=== PATIENT | male | born 1940 | race Caucasian/White ===

== ENCOUNTER 2018-08-20 13:16 | Inpatient (IN) | payer OTHER, MEDICARE ==
--- NOTE | 2018-08-20 13:47 | PDOC ---
History of Present Illness - General Chief Complaint: Revisit, Lab Variance Stated Complaint: ABNORMAL LABS Time Seen by Provider: 08/20/18 13:47 History Source: [facility] Records Exam Limitations: Clinical Condition, Physical Impairment - History of Present Illness Initial Comments: Pt is an 78 yo M, with PMH of [place] with CABG x3, CVA (with deficits, chronic vent/ trach, G-tube, cortes), Non-hodgkins lymphoma, HTN, and VZV (on acyclovir), who is presenting from [facility] for blood transfusion with hemoglobin of 7. Pt is non- verbal and cannot provide ROS. Nursing records show pt has had hemoglobin ~7- 7.1 since at least 08/16/2018; fecal occult stool sample done today showed 3+ blood, so was sent for transfusion. Social: No cigarette, alcohol, or drug use. No recent travel or sick contacts. Surgical: no relevant history. Family: no relevant history. 08/20/18 16:50 Past History - Travel Traveled outside of the country in the last 30 days: No Close contact w/someone who was outside of country & ill: No - Past Medical History Allergies/Adverse Reactions: Allergies Allergy/AdvReac Type Severity Reaction Status Date / Time No Known Allergies Allergy Verified 08/20/18 13:48 Review of Systems - Review of Systems Able to Perform ROS?: No (trach, non-verbal) Is the patient limited Zambian proficient: No *Physical Exam - Physical Exam Comments: BP stable, HR 120, rectal temp 100.9. Pt in NAD, cachectic body habitus. Pt non-verbal, but shakes his head to questioning. 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 Withdraws extremities from stimuli. No midline spinal tenderness, step-offs, or crepitus. Head normocephalic, atraumatic. Eyes PERRLA, EOMI. Oropharynx without erythema or exudates, no LAD b/l. Dry oral mucosa. No nasal congestion, hearing intact. Clear heart sounds, S1/S2, no JVD, b/l pedal edema, or heart murmur. Bounding pulses. Clear lung sounds, no respiratory distress, wheezes, crackles, or accessory muscle use. No abdominal or CVA tenderness to palpation, no rebound, no guarding. Abdomen soft, non-distended, and with normoactive bowel sounds. Large unstageable pressure ulcer on pts back. Active shingles lesions on L axilla. Sebaceous lesions on forehead and extremities. Cortes catheter in place, draining cloudy yellow urine. Rectal exam showed no zane blood in stool. 08/20/18 15:09 ED Treatment Course - LABORATORY CBC & Chemistry Diagram: 08/20/18 14:03 08/20/18 14:03 Medical Decision Making - Medical Decision Making Pt was seen at bedside, also will be seen by attending Dr. Ballesteros. Pt presenting from [facility] for blood transfusion with hemoglobin of 7. Pt is non-verbal and cannot provide ROS. Nursing records show pt has had hemoglobin ~7-7.1 since at least 08/16/2018; fecal occult stool sample done today showed 3+ blood, so was sent for transfusion. Considering GI bleed (likely lower considering no vomiting and +fecal occult at [facility]) vs sepsis (UTI, pneumonia) Ordered work-up including sepsis orders, Fe studies, chest x-ray, blood and urine cultures. Provided 1 g IV Ofirmev and 40 mg IV protonix for improvement of fever. Will continue to reassess pt and monitor for symptomatic improvement. ECG: Sinus tachycardia with PVCs (HR 119, NC 130, QRS 80, QTc 419), intervals WNL. No TWIs or significant ST segment changes. No prior ECG for comparison. 08/20/18 16:20 CBC: 13.1, H/H 7.7/24 CMP: BUN 37, Cr 0.5 Trop .06 Stool + for occult blood Lactic 2.1 Providing pt 500 mL IV NS Spoke with next of kin and proxy by telephone, consented for blood transfusion - - ordered 1 unit pRBCs. 08/20/18 16:[address] Shirley/G[facility] team x2 (admits for [facility]). 08/20/18 16:55 UA negative for infection. 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 Pending bed upstairs for admission to med/surg. 08/20/18 17:04 *DC/Admit/Observation/Transfer Diagnosis at time of Disposition: Anemia Qualifiers: Anemia type: unspecified type Qualified Code(s): D64.9 - Anemia, unspecified - Discharge Dispostion Condition at time of disposition: Stable Decision to Admit order: Yes - Referrals Referrals: Garcia Ricardo MD [Primary Care Provider] - - Patient Instructions - Post Discharge Activity
[2018-08-20] MEDS ORDERED: ACETAMINOPHEN 1000 MG/100 ML VIAL (NON FORMULARY) IVPB ONE (13:48)
[2018-08-20] MEDS ORDERED: PANTOPRAZOLE SODIUM 40 MG VIAL IVPUSH ONE (14:46)
[2018-08-20 15:08] LABS: BASO % 0.2 % (0-2.0); HEMATOCRIT 24.4 % (35.4-49); HEMOGLOBIN 7.7 GM/dL (11.7-16.9); LYMPH % 3.1 % (8-40); MCH 34.5 pg (25.7-33.7); MCHC 31.7 g/dl (32.0-35.9); MEAN CELL VOLUME 108.6 fl (80-96); MEAN PLT VOLUME 9.5 fl (7.5-11.1); MONO % 7.1 % (3.8-10.2); NEUT % 89.6 % (42.8-82.8); PLATELET COUNT 378 K/MM3 (134-434); RBC 2.25 M/mm3 (4.00-5.60); RDW 23.9 % (11.9-15.9); RETICULOCYTES 3.44 % (0.5-1.5); WHITE BLOOD COUNT 13.1 K/mm3 (4.0-10.0)
[2018-08-20] MEDS ORDERED: ACETAMINOPHEN INJECTION 100 ML IVPB ONE (15:08)
[2018-08-20] MEDS ORDERED: PANTOPRAZOLE SODIUM 40 MG/100 ML BAG IVPB ONE (15:08)
[2018-08-20 15:30] LABS: INR 1.49 (0.83-1.09); PROTHROMBIN TIME (PATIENT) 17.6 SEC (9.7-13.0)
[2018-08-20 15:32] LABS: ACTIVATED PTT 39.8 SECONDS (25.2-36.5)
--- NOTE | 2018-08-20 15:38 | PDOC ---
Documentation entered by Amber Torres SCRIBE, acting as scribe for Camille Ballesteros MD. Camille Ballesteros MD: This documentation has been prepared by the Melissa rivera Nirvannie, SCRIBE, under my direction and personally reviewed by me in its entirety. I confirm that the documentation accurately reflects all work, treatment, procedures, and medical decision making performed by me. 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 As per facility, patient was sent to the ER for blood transfusion and admission. History is limited secondary to patient's clinical condition. Allergies: None Past Medical History: as documented in EMR/HPI Social history: DNR. Lives at [facility]. No tobacco, ETOH or drug use. Surgical history: CABG Meds: as documented in EMR PMD: Dr. Ricardo - Physicial Exam PE: 08/20/18 14:34 Agree with the resident's HPI and PE as documented in the electronic medical record. NAD, Arousable, nonverbal EOMI, PERRL, pale conjunctiva, anicteric; neck supple. +Trach in place,. lungs clear, poor inspiratory effort, +Tachycardic, + Midline sternotomy scar, +cachetic, abdomen soft nontender. Back nontender. HERRERA x4, no focal neuro deficits, +nonverbal at baseline. No peripheral edema. pale color for ethnicity, +Left axila shingles rash, dry skin 08/20/18 15:37 08/20/18 15:37 - Medical Decision Making 08/20/18 15:35 See HPI for details. Prior notes reviewed, including admissions, discharges and consultations. Vital signs reviewed, fever, normotensive. on trach/vent chronically laboratory results and imaging reviewed, basic labs and lytes wnl, notable for Mild leukocytosis at 13 K associated with anemia hemoglobin 7.7, hct 24.4 - symptomatic, will treat accordingly UA_with some rbcs, wbcs - f/u culture, as probable colonizer CXR_left infiltrate in retrocardiac space vs atelectasis, sternotomy wires in place Cardiac panel_elevated trop 0.06, no acute ekg changes EKG sinus tachycardia, no interval abnormalities, narrow QRS, ST and T wave segments and morphology normal. Nonspecific T wave abnormalities ED course -interventions: IV abx for sepsis, vanc/zosyn. antipyretics for fever UTI with chronic indwelling cath vs pna on cxr and chronic vent - mrsa and pseudomonas risk Aspirin held off due to anemia and positive guaiac. Troponin is noted to be elevated mildly to 0.06 likely demand ischemia. EKG is transfusion 1 unit prbc protonix for occult GIB as etiology for anemia. repeat VS normalizing, defervesced admit to Dr Shirley service for anemia, occult GIB, pna and demand ischemia 08/20/18 15:37 08/20/18 15:38 08/20/18 15:39 08/20/18 15:51 08/20/18 17:16 08/20/18 17:17 Heart Score/ECG Review #1 ECG reviewed & interpreted by me at: 13:15 General ECG Interpretation: Sinus Rhythm, Normal Intervals Compared to previous ECG there are: Changes noted 08/20/18 15:43 Sinus tachycardia at 119 bpm, nonspecific T-wave abnormalities
[2018-08-20 15:44] LABS: CALCIUM 8.9 mg/dL (8.5-10.1); CREATININE 0.5 mg/dL (0.55-1.3); POTASSIUM 4.8 mmol/L (3.5-5.1)
[2018-08-20 15:45] LABS: ALBUMIN 2.2 g/dl (3.4-5.0); BILIRUBIN,TOTAL 0.3 mg/dL (0.2-1); TOT PROT 6.5 g/dl (6.4-8.2)
[2018-08-20] MEDS ORDERED: VANCOMYCIN 750 MG in DEXTROSE 5%-WATER - 250 ML IVPB ONE (15:47)
[2018-08-20] MEDS ORDERED: SODIUM CHLORIDE 500 ML IV STA (15:47)
[2018-08-20] MEDS ORDERED: PIPERACILLIN/TAZOB 3.375 GM 3.375 GM in DEXTROSE 5%-WATER - 50 ML IVPB ONE (15:47)
[2018-08-20] MEDS ORDERED: AZITHROMYCIN IVPB 500 MG in DEXTROSE 5%-WATER - 250 ML IVPB ONE (15:48)
[2018-08-20] MEDS ORDERED: AZITHROMYCIN IVPB 500 MG/250 ML BAG IVPB ONE (15:52)
[2018-08-20] MEDS ORDERED: PIPERACILLIN/TAZOB 3.375 GM 3.375 GM/50 ML BAG IVPB ONE (15:52)
[2018-08-20 16:17] LABS: EPI CELLS 2.5 /HPF (0-5/HPF); HYALINE CASTS 26 /lpf (0-8); URINE APPEARANCE CLOUDY; URINE BACTERIA 2.9 /hpf (NEGATIVE); URINE BILIRUBIN NEGATIVE (NEGATIVE); URINE COLOR YELLOW; URINE GLUCOSE (UA) NEGATIVE (NEGATIVE); URINE KETONE NEGATIVE (NEGATIVE); URINE LEUK ESTERASE NEGATIVE (NEGATIVE); URINE NITRITE NEGATIVE (NEGATIVE); URINE PROTEIN TRACE (NEGATIVE); URINE RBC 23 /hpf (0-4); URINE UROBILINOGEN 0.2 mg/dL (0.2-1.0); URINE WBC 2 /hpf (0-5)
[2018-08-20] MEDS ORDERED: ALBUTEROL SO4 0.083% IH SOL 2.5 MG/3 ML VIAL.NEB. NEB PRN (17:19)
[2018-08-20] MEDS ORDERED: SODIUM CHLORIDE 1,000 ML IV SCH (17:30)
[2018-08-20] MEDS ORDERED: ACETAMINOPHEN 325 MG TABLET (FP) PO PRN (17:31)
--- NOTE | 2018-08-20 17:43 | HP ---
Admitting History and Physical - Primary Care Physician PCP: Sridevi Hong - Admission Chief Complaint: Anemia History of Present Illness: Patient is an 78 y/o male with past medical history of Chronic Respiratory Failure (s/p trach), HLD, [place], anxiety, chronic constipation, Afib, GERD, COPD, HTN, sacral ulcer, chronic wound to L elbow. Patient presented to ER from [facility] for Hg of 7 and positive Stool OB. Patient is non-verbal and ventilator dependent. History Source: Transfer Record Limitations to Obtaining History: Clinical Condition - Past Medical History Cardiovascular: Yes: AFIB, CAD, HTN, [place] Pulmonary: Yes: COPD, Other (Chronic Respiratory Failure) Gastrointestinal: Yes: GERD Heme/Onc: Yes: Anemia - Past Surgical History Past Surgical History: Yes: CABG - Smoking History Smoking history: Unknown if ever smoked - Alcohol/Substance Use Hx Alcohol Use: No - Social History Usual Living Arrangement: Yes: Jail ADL: Support Services History of Recent Travel: No Home Medications - Allergies Allergies/Adverse Reactions: Allergies Allergy/AdvReac Type Severity Reaction Status Date / Time No Known Allergies Allergy Verified 08/20/18 13:48 - Home Medications Home Medications: Ambulatory Orders Acetaminophen 325 mg GT Q8H PRN 08/20/18 Acyclovir [Zovirax] 200 mg GT Q12H 08/20/18 Albuterol 2.5/Ipratropium 0.5 [Duoneb -] 1 neb IH QID 08/20/18 Aspirin [ASA -] 81 mg GT DAILY 08/20/18 Atorvastatin Ca [Lipitor] 80 mg GT HS 08/20/18 Clonazepam 0.5 mg GT DAILY 08/20/18 Docusate Liquid [Colace Liquid -] 15 ml GT TID 08/20/18 Famotidine [Pepcid] 40 mg GT BID 08/20/18 Metoprolol Tartrate [Lopressor -] 25 mg PO Q12H 08/20/18 Polyethylene Glycol 3350 [Miralax (For Daily Use) -] 17 gm GT DAILY 08/20/18 Review of Systems Unable to obtain ROS, reason: non-verbal Physical Examination Vital Signs: Vital Signs Temperature 99.6 F 08/20/18 17:18 Pulse Rate 103 H 08/20/18 17:18 Respiratory Rate 34 H 08/20/18 17:18 Blood Pressure 122/72 08/20/18 17:18 O2 Sat by Pulse Oximetry (%) 100 08/20/18 17:18 Constitutional: Yes: Cachectic, Mild Distress Eyes: Yes: Conjunctiva Clear HENT: Yes: Atraumatic Neck: Yes: Other (trach) Cardiovascular: Yes: Tachycardia Respiratory: Yes: Mechanically Ventilated, Rhonchi Gastrointestinal: Yes: Normal Bowel Sounds, Soft, Other (G tube) Renal/: Yes: Hsieh Present Musculoskeletal: Yes: Muscle Weakness Extremities: Yes: WNL Edema: No Neurological: Yes: Alert, Pre-Existing Deficit Psychiatric: Yes: Alert Labs: CBC, BMP 08/20/18 14:03 08/20/18 14:03 Imaging - Results Chest X-ray: Report Reviewed Problem List - Problems (1) HTN (hypertension) Assessment/Plan: -Metoprolol Code(s): I10 - ESSENTIAL (PRIMARY) HYPERTENSION (2) HLD (hyperlipidemia) Assessment/Plan: -Atorvastatin Code(s): E78.5 - HYPERLIPIDEMIA, UNSPECIFIED (3) GERD (gastroesophageal reflux disease) Assessment/Plan: -Famotidine Code(s): K21.9 - GASTRO-ESOPHAGEAL REFLUX DISEASE WITHOUT ESOPHAGITIS (4) Chronic respiratory failure Assessment/Plan: -pulmonary consult -[facility] ventilator A/C mode -bronchodilators -keep SpO2 >90% Code(s): J96.10 - CHRONIC RESPIRATORY FAILURE, UNSP W HYPOXIA OR HYPERCAPNIA (5) A-fib Assessment/Plan: -Metoprolol Code(s): I48.91 - UNSPECIFIED ATRIAL FIBRILLATION (6) Sacral decubitus ulcer Assessment/Plan: -Silvadene daily -daily dressing changes Code(s): L89.159 - PRESSURE ULCER OF SACRAL REGION, UNSPECIFIED STAGE (7) Anemia Assessment/Plan: -Hg 7.7--pending 1U PRBC transfusion -GI consult -Stool OB positive -monitor Hg daily and transfuse for Hg <7.0 to avoid fluid overload Code(s): D64.9 - ANEMIA, UNSPECIFIED Qualifiers: Anemia type: unspecified type Qualified Code(s): D64.9 - Anemia, unspecified (8) Sepsis Assessment/Plan: -ID consult -received Vancomycin and ZOsyn in ER -WBC 13.1 -tylenol prn for temp >100F -BC and UC pending -LA 2.1 -CXR shows left retrocardiac opacity attributed to the pleural effusion, compressive atelectasis pneumonia cannot be entirely excluded Code(s): A41.9 - SEPSIS, UNSPECIFIED ORGANISM
[2018-08-20] MEDS: METOPROLOL TARTRATE 25 MG TABLET (FP) GT SCH (23:42)
[2018-08-20] MEDS: ATORVASTATIN CA 80 MG TABLET (FP) GT SCH (23:42)
[2018-08-20] MEDS: clonazePAM 0.5 MG TABLET GT PRN (23:42)
[2018-08-20] MEDS: FAMOTIDINE 20 MG/50 ML IVPB 20 MG/50 ML MG IVPB SCH (23:43)
[2018-08-21] MEDS: ACYCLOVIR 200 MG/5 ML LIQUID GT SCH ×3 (00:55→21:44)
[2018-08-21] MEDS: HYDROCORTISONE 2.5% TOPICAL CREAM 30 GM TUBE TP SCH ×3 (00:55→22:56)
[2018-08-21 07:31] LABS: BASO % 0.3 % (0-2.0); EOS % 3.1 % (0-4.5); HEMATOCRIT 23.3 % (35.4-49); HEMOGLOBIN 7.7 GM/dL (11.7-16.9); LYMPH % 3.6 % (8-40); MCH 33.6 pg (25.7-33.7); MCHC 32.9 g/dl (32.0-35.9); MEAN CELL VOLUME 102.1 fl (80-96); MEAN PLT VOLUME 8.7 fl (7.5-11.1); MONO % 4.2 % (3.8-10.2); NEUT % 88.8 % (42.8-82.8); PLATELET COUNT 261 K/MM3 (134-434); RBC 2.28 M/mm3 (4.00-5.60); RDW 25.5 % (11.9-15.9); WHITE BLOOD COUNT 9.8 K/mm3 (4.0-10.0)
[2018-08-21 08:11] LABS: ALBUMIN 1.9 g/dl (3.4-5.0); BILIRUBIN,TOTAL 0.9 mg/dL (0.2-1); CALCIUM 9.1 mg/dL (8.5-10.1); CREATININE 0.3 mg/dL (0.55-1.3); MAGNESIUM 2.5 mg/dL (1.8-2.4); PHOSPHOROUS 3.3 mg/dL (2.5-4.9); POTASSIUM 3.8 mmol/L (3.5-5.1); TOT PROT 5.6 g/dl (6.4-8.2)
[2018-08-21 08:29] LABS: INR 1.36 (0.83-1.09); PROTHROMBIN TIME (PATIENT) 16.1 SEC (9.7-13.0)
[2018-08-21 08:32] LABS: ACTIVATED PTT 38.1 SECONDS (25.2-36.5)
--- NOTE | 2018-08-21 09:24 | PN ---
Progress Note, Physician History of Present Illness: s/p cabg x 3 on 07/09/18 s/p trach 07/12/18 vent.stroke 07/18/18 Peg placement on hx. of Nonhodgskin lymphoma ,htn,hld.s noted with hgb of 7 - Current Medication List Current Medications: Active Medications Acetaminophen (Tylenol -) 650 mg PO Q8H PRN PRN Reason: FEVER Acyclovir (Zovirax Oral Suspension -) 200 mg GT BID [facility] Last Admin: 08/21/18 00:55 Dose: 200 mg Albuterol Sulfate (Ventolin 0.083% Nebulizer Soln -) 1 amp NEB Q6H PRN PRN Reason: SHORT OF BREATH/WHEEZING Albuterol/Ipratropium (Duoneb -) 1 amp NEB Q6H PRN PRN Reason: SHORTNESS OF BREATH Aspirin (Asa -) 81 mg GT DAILY [facility] Atorvastatin Calcium (Lipitor -) 80 mg GT HS [facility] Last Admin: 08/20/18 23:42 Dose: 80 mg Clonazepam (Klonopin -) 0.5 mg GT Q8H PRN PRN Reason: ANXIETY Stop: 08/27/18 17:33 Last Admin: 08/20/18 23:42 Dose: 0.5 mg Docusate Sodium (Colace Liquid -) 150 mg GT DAILY [facility] Hydrocortisone (Anusol 2.5% Hc Cream -) 1 applic TP BID [facility] Last Admin: 08/21/18 00:55 Dose: 1 applic Sodium Chloride (Normal Saline -) 1,000 mls @ 50 mls/hr IV ASDIR [facility] Stop: 08/21/18 17:21 Last Admin: 08/20/18 20:45 Dose: 50 mls/hr Famotidine/Sodium Chloride (Pepcid 20 Mg Premixed Ivpb -) 20 mg in 50 mls @ 100 mls/hr IVPB BID [facility] Last Admin: 08/20/18 23:43 Dose: 100 mls/hr Metoprolol Tartrate (Lopressor -) 12.5 mg GT BID [facility] Last Admin: 08/20/18 23:42 Dose: 12.5 mg Pneumococcal 13-Valent Conj Vacc (Prevnar 13 Syringe -) 0.5 ml IM .ONCE ONE Stop: 08/21/18 10:01 Polyethylene Glycol (Miralax (For Daily Use) -) 17 gm GT DAILY MAGDALENE Silver Sulfadiazine (Silvadene -) 1 applic TP DAILY MAGDALENE - Objective Vital Signs: Vital Signs Temperature 98.2 F 08/21/18 06:00 Pulse Rate 94 H 08/21/18 06:38 Respiratory Rate 27 H 08/21/18 06:37 Blood Pressure 91/46 L 08/21/18 06:00 O2 Sat by Pulse Oximetry (%) 100 08/21/18 06:38 Labs: CBC, BMP 08/21/18 06:49 08/21/18 06:49 INR, PTT INR 1.36 (0.83-1.09) H 08/21/18 06:49 Problem List - Problems (1) Anemia Assessment/Plan: -Hg 7.7-transfuse 2U PRBC -GI consult -Stool OB positive -monitor Hg daily and transfuse for Hg <7.0 to avoid fluid overload -Hem consult -PPI -Follow labs -DC ASA Code(s): D64.9 - ANEMIA, UNSPECIFIED Qualifiers: Anemia type: unspecified type Qualified Code(s): D64.9 - Anemia, unspecified (2) Sepsis Assessment/Plan: -ID consult -received Vancomycin and ZOsyn in ER -WBC 13.1 -tylenol prn for temp >100F -BC and UC pending -LA 2.1 -CXR shows left retrocardiac opacity maybe compressive atelectasis -r/o pneumonia Code(s): A41.9 - SEPSIS, UNSPECIFIED ORGANISM (3) Lymphoma Assessment/Plan: -Oncology consult Code(s): C85.90 - NON-HODGKIN LYMPHOMA, UNSPECIFIED, UNSPECIFIED SITE (4) A-fib Assessment/Plan: hold asa Code(s): I48.91 - UNSPECIFIED ATRIAL FIBRILLATION (5) Chronic respiratory failure Assessment/Plan: -pulmonary consult -[facility] ventilator A/C mode -bronchodilators -keep SpO2 >90% Code(s): J96.10 - CHRONIC RESPIRATORY FAILURE, UNSP W HYPOXIA OR HYPERCAPNIA (6) HTN (hypertension) Assessment/Plan: -Metoprolol Code(s): I10 - ESSENTIAL (PRIMARY) HYPERTENSION (7) Sacral decubitus ulcer Assessment/Plan: -Silvadene daily -daily dressing changes Code(s): L89.159 - PRESSURE ULCER OF SACRAL REGION, UNSPECIFIED STAGE
--- NOTE | 2018-08-21 09:40 | PN ---
Progress Note (short form) - Note Progress Note: ID CONSULT DICTATED R/O HCAP LLL PNEUMONIA/ SEPSIS SECONDARY TO PNEUMONIA CHRONIC RESP FAILURE ANEMIA S/P CABG AWAIT C/S EMPIRIC ZOSYN
--- NOTE | 2018-08-21 09:56 | CON.GI ---
Consult Consult Specialty:: Gastroenterology Referred by:: Dr. Hong Reason for Consultation:: Anemia, GI bleed - History of Present Illness History of Present Illness: 78yo male h/o Non hodgkins lymphoma, COPD, CAD s/p CABG, CVA s/p trach, PEG, VZV on acyclovir presents from [facility] with anemia and positive FOBT. Pt lethargic, not able to provide history though attempts to communicate on my evaluation. Per records pt found to have low Hb of 7 with positive FOBT therefore transferred to [facility]. No overt bleeding reported. Unclear if prior endoscopy. Pt receiving 1u prbc. Pt also found to have low grade fever and leucocytosis on admission, cultures pending, being treated empirically with zosyn for possible pneumonia. - History Source History Provided By: Medical Record Limitations to Obtaining History: Other (s/p tracheostomy) - Past Medical History Cardio/Vascular: Yes: AFIB, CAD, HTN, [place] Pulmonary: Yes: COPD, Other (Chronic Respiratory Failure) Gastrointestinal: Yes: GERD - Past Surgical History Past Surgical History: Yes: CABG - Alcohol/Substance Use Hx Alcohol Use: No - Smoking History Smoking history: Unknown if ever smoked - Social History ADL: Support Services History of Recent Travel: No Home Medications - Allergies Allergies/Adverse Reactions: Allergies Allergy/AdvReac Type Severity Reaction Status Date / Time No Known Allergies Allergy Verified 08/20/18 13:48 - Home Medications Home Medications: Ambulatory Orders Acetaminophen 325 mg GT Q8H PRN 08/20/18 Acyclovir [Zovirax] 200 mg GT Q12H 08/20/18 Albuterol 2.5/Ipratropium 0.5 [Duoneb -] 1 neb IH QID 08/20/18 Aspirin [ASA -] 81 mg GT DAILY 08/20/18 Atorvastatin Ca [Lipitor] 80 mg GT HS 08/20/18 Clonazepam 0.5 mg GT DAILY 08/20/18 Docusate Liquid [Colace Liquid -] 15 ml GT TID 08/20/18 Famotidine [Pepcid] 40 mg GT BID 08/20/18 Metoprolol Tartrate [Lopressor -] 25 mg PO Q12H 08/20/18 Polyethylene Glycol 3350 [Miralax (For Daily Use) -] 17 gm GT DAILY 08/20/18 Review of Systems Unable to obtain ROS, reason: Pt lethargic, s/p trach Physical Exam-GI Vital Signs: Vital Signs Temperature 98.2 F 08/21/18 06:00 Pulse Rate 94 H 08/21/18 06:38 Respiratory Rate 27 H 08/21/18 06:37 Blood Pressure 91/46 L 08/21/18 06:00 O2 Sat by Pulse Oximetry (%) 100 08/21/18 06:38 Constitutional: Yes: Calm, Cachectic Cardiovascular: Yes: WNL, Regular Rate and Rhythm Respiratory: Yes: Diminished ...Palpate: Yes: Other (Abd soft, no tenderness elicited, nondistended +PEG in place, flushed with yellowish secretions seen, no blood. Dark green stool on exam.) Labs: CBC, BMP 08/21/18 06:49 08/21/18 06:49 INR, PTT INR 1.36 (0.83-1.09) H 08/21/18 06:49 Problem List - Problems (1) Anemia Assessment/Plan: 78yo male h/o Non hodgkins lymphoma, COPD, CAD s/p CABG, CVA s/p trach, PEG (? placement in 07/2018), VZV on acyclovir presents from [facility] with anemia (Hb ~7) and positive FOBT. Pt not able to provide history, no overt bleeding (PEG flushed, dark green stool seen). Unclear if prior endoscopy. Baseline Hb not known at this time. -No emergent indication for endoscopy in absence of overt bleeding and considering pts age/comorbidities the risks will need to be carefully weighed. -Recommend monitoring of Hb and for further bleeding, transfuse as needed maintain Hb >7 -Check iron studies/ferritin, B12/folate -PPI daily for now, or can continue with H2 tavares -Follow up ID recommendations and await urine and blood cultures -Request primary team to please try to obtain previous records including labs. Will also need to clarify goals of care. -Spoke with pts son (ROGER), states they are considering pursuing hospice care and do not want to pursue invasive procedures including endoscopy at this time. -Pending family decision regarding comfort care, if overt bleeding with acute drop in Hb or hemodynamic instability in the interim please notify GI for possible more urgent intervention. Code(s): D64.9 - ANEMIA, UNSPECIFIED Qualifiers: Anemia type: unspecified type Qualified Code(s): D64.9 - Anemia, unspecified
[2018-08-21] MEDS ORDERED: ASPIRIN 81 MG CHEWABLE TABLETS GT SCH (10:00)
--- NOTE | 2018-08-21 10:08 | EKG ---
Test Reason : Blood Pressure : / mmHG Vent. Rate : 119 BPM Atrial Rate : 119 BPM P-R Int : 130 ms QRS Dur : 080 ms QT Int : 298 ms P-R-T Axes : 046 027 -71 degrees QTc Int : 419 ms SINUS TACHYCARDIA WITH OCCASIONAL PREMATURE VENTRICULAR COMPLEXES POSSIBLE ANTERIOR INFARCT , AGE UNDETERMINED ABNORMAL ECG NO PREVIOUS ECGS AVAILABLE Confirmed by PAVAN BANEGAS MD ([id number]) on 08/21/2018 10:07:48 AM Referred By: Confirmed By:PAVAN BANEGAS MD
--- NOTE | 2018-08-21 11:06 | CONS ---
DATE OF CONSULTATION: DATE OF DICTATION: 08/21/2018 HISTORY OF PRESENT ILLNESS: The patient is an 78-year-old male evaluated for pneumonia. History was obtained from the chart as he cannot give a history. He apparently was a recent admission to [facility]. At the [facility], he was noted to be anemic and was transferred to the hospital for blood transfusion. In the emergency room, his temperature was 100.9, white blood cell count 13.1. A chest x-ray was rotated, however, has increased markings at the left base consistent with infiltrate. He was empirically treated with vancomycin and Zosyn. He is unable to give any additional history. No reports of labored breathing, increased tracheal secretions, vomiting, high grade fever, or shaking chills. PAST MEDICAL HISTORY: Positive for chronic respiratory failure, stroke, coronary artery disease, myocardial infarction, non-Hodgkins lymphoma, hyperlipidemia, hypertension, atrial fibrillation, COPD, gastroesophageal reflux, reported shingles left axilla. PAST SURGICAL HISTORY: Status post coronary artery bypass graft, tracheostomy, feeding gastrostomy. ALLERGIES: No known allergies. MEDICATIONS: Acyclovir, albuterol, aspirin, Lipitor, Pepcid, Lopressor. SOCIAL HISTORY: [facility], is dependent on activities of daily living. No active tobacco or alcohol use. SYSTEMS REVIEW: Neurologic: Positive for stroke. Cardiac: Status post coronary artery bypass graft. Respiratory: As per HPI. Gastrointestinal: Negative for vomiting or diarrhea. Genitourinary: Negative for urinary tract infection. LABORATORY DATA: White count 13.1, hematocrit 23.3, platelets 261. Creatinine 0.3. Urinalysis 2 white cells. Chest x-ray shows increased markings at the left base. PHYSICAL EXAMINATION: General: He is cachectic. He is awake, not verbally responsive. Vital signs: Temperature 98.2, maximum temperature 100.9, blood pressure 91/46, pulse 89 and regular, respirations 20 per minute. HEENT: Sclerae anicteric. Heart: Heart sounds S1, S2. There is a sternal wound which appears to be healing well. There is no erythema or drainage. Lungs: Air entry bilaterally. Abdomen: Soft and nontender. Extremities: Negative for edema. There is dry gangrene of the tip of the right index finger. There is a sacral pressure wound and hypertrophic fungating skin lesion in the left axilla. IMPRESSION: 1. Rule out [id number] left lower lobe pneumonia. 2. Possible sepsis secondary to pneumonia. 3. Chronic respiratory failure. 4. Anemia. 5. Status post coronary artery bypass graft. Await cultures, obtain suction sputum C and S, urine legionella antigen, empiric antibiotic coverage, [id number] pathogens with Zosyn. Thank you for the kind referral. ANNEMARIE VELEZ M.D. [id number]
[2018-08-21] MEDS ORDERED: PIPERACILLIN/TAZOBACTAM 3.375 GM VIAL IVPB ONE ×2 (11:11→18:51)
[2018-08-21] MEDS ORDERED: DEXTROSE 5%-WATER - 50 ML IVPB ONE ×2 (11:11→18:51)
[2018-08-21] MEDS: DOCUSATE NA 100 MG/10 ML UNIT-DOSE CUPS GT SCH (11:52)
[2018-08-21] MEDS: POLYETHYLENE GLYCOL 3350 119 GM BTL GT SCH (11:53)
[2018-08-21] MEDS: FAMOTIDINE 20 MG/50 ML IVPB 20 MG/50 ML MG IVPB SCH ×2 (11:53→21:44)
[2018-08-21] MEDS: METOPROLOL TARTRATE 25 MG TABLET (FP) GT SCH ×2 (11:53→21:44)
[2018-08-21] MEDS: PIPERACILLIN/TAZOB 3.375 GM 3.375 GM in DEXTROSE 5%-WATER - 50 ML IVPB SCH ×2 (11:54→19:11)
--- NOTE | 2018-08-21 12:37 | PN ---
Progress Note (short form) - Note Progress Note: PULMONARY CONSULTATION DICTATED 08/21/18 IMP CHRONIC RESPIRATORY FAILURE S/P TRACH ON VENT SUPPORT ANEMIA GIB ? PNEUMONIA LLL AFIB ASHD S/P CO,S/P CABG HTN SACRAL ULCER STAGE 1 /O CVA PLAN CONTINUE VENT SUPPORT ON AC MODE NORMAL TRANFUSION THRESHOLD INHALED BRONCHODILATORS MONITOR LYTES MONITOR H+H ABX PER ID F/U CHEST X-RAYS CULTURES DR STAFFORD Problem List - Problems (1) ASHD (arteriosclerotic heart disease) Code(s): I25.10 - ATHSCL HEART DISEASE OF [place] CORONARY ARTERY W/O ANG PCTRS (2) A-fib Code(s): I48.91 - UNSPECIFIED ATRIAL FIBRILLATION (3) Anemia Code(s): D64.9 - ANEMIA, UNSPECIFIED Qualifiers: Anemia type: unspecified type Qualified Code(s): D64.9 - Anemia, unspecified (4) Chronic respiratory failure Code(s): J96.10 - CHRONIC RESPIRATORY FAILURE, UNSP W HYPOXIA OR HYPERCAPNIA (5) HLD (hyperlipidemia) Code(s): E78.5 - HYPERLIPIDEMIA, UNSPECIFIED (6) HTN (hypertension) Code(s): I10 - ESSENTIAL (PRIMARY) HYPERTENSION (7) Sacral decubitus ulcer Code(s): L89.159 - PRESSURE ULCER OF [place], UNSPECIFIED STAGE (8) S/P CABG (coronary artery bypass graft) Code(s): Z95.1 - PRESENCE OF AORTOCORONARY BYPASS GRAFT
--- NOTE | 2018-08-21 13:46 | CONS ---
DATE OF CONSULTATION: 08/21/2018 REFERRING PHYSICIAN: Sridevi Hong MD History was obtained from medical records. HISTORY OF PRESENT ILLNESS: The patient is an 78-year-old white male with past medical history of chronic respiratory failure status post tracheostomy, currently on ventilator support assist control mode, status post PEG, COPD, ASHD, status post DC, status post CABG, varicella-zoster currently on acyclovir, GERD, atrial fibrillation, resident of [facility] who was transferred to [facility] secondary to low hemoglobin and positive fecal occult blood test. The patient is transferred with the above. Patient on admission was transfused 1 unit of packed red blood cells without complications. Of note, he had a chest x-ray on admission which revealed possible left basilar infiltrate. He was followed by Infectious Disease and placed on broad-spectrum antibiotics. He was also evaluated by gastroenterology, who felt there was no emergent indication for endoscopy. No further history available at this time. PAST MEDICAL HISTORY: Again includes chronic respiratory failure on ventilatory support, status post tracheostomy, ASHD status post DC, status post CABG, atrial fibrillation, COPD, history of CVA, PEG; history of varicella-zoster, currently on acyclovir; GERD. CURRENT MEDICATIONS: Include Anusol, Tylenol, Zovirax, piperacillin, albuterol, DuoNeb, Lopressor, Colace, MiraLax, normal saline, Pepcid, Lipitor, Silvadene, and Prevnar. REVIEW OF SYSTEMS: Unable to obtain. Patient is poorly responsive. PHYSICAL EXAMINATION: General: The patient is an elderly white male, thin, cachectic, well developed, poorly responsive on ventilatory support. Vital Signs: He is currently afebrile. Blood pressure is 112/61. Respiratory rate is 18. Heart rate is 70. FiO2 is 70. He is on assist control mode. HEENT: Normocephalic, atraumatic. Neck: Supple. Heart: Irregularly irregular, S1, S2. Chest: Diminished breath sounds bilaterally. Few scattered rhonchi. Abdomen: Soft. Bowel sounds are positive. Has a PEG. Extremities: No cyanosis or edema. LABORATORY: Sodium is 146, BUN 30, creatinine 0.3, troponin 0.06. INR is 1.36. WBCs 9.8, hemoglobin 7.7, hematocrit 23.3. Platelet count is 261,000, 88 polys, 3 lymphs and 4 monocytes. Chest x-ray rotated film, possible left basilar infiltrate and/or effusion. IMPRESSION: 1. Chronic respiratory failure status post tracheostomy on ventilator support. 2. Anemia, possibly secondary to gastrointestinal bleed. 3. Questionable pneumonia, left lower lobe. 4. Atrial fibrillation. 5. Arteriosclerotic heart disease status post myocardial infarction, status post coronary artery bypass graft. 6. Hypertension. 7. Sacral ulcer, stage I. 8. History of cerebrovascular accident. PLAN: Continue ventilator support on assist control mode, normal transfusion threshold, inhaled bronchodilators, monitor electrolytes, obtain cultures, monitor hemoglobin and hematocrit, follow up chest x-ray, pulmonary toilet, tracheal suctioning, further GI workup as per gastroenterology. ELVIE STAFFORD M.D. [id number]
--- NOTE | 2018-08-21 15:54 | CONSULT ---
Consultation: REQUESTING PROVIDER: Dr Hong CONSULT REQUEST: We have been asked to medically evaluate this patient for ( anemia). HISTORY OF PRESENT ILLNESS: History is take from medical records. The patient is on mechanical ventilation, not following commands/answering questions. The patient is a 78 yo male with PMH of Non Hodgkins lymphoma, COPD, CAD s/p CABG, a.fib, CVA s/p trach, PEG, VZV on acyclovir presents from [facility] with anemia, Hb of 7, and positive FOBT. No overt bleeding reported. Pt received 1u prbc. He was also admitted for possible pneumonia ( leukocytosis, fever). PSH CABG SH-N/A FH: N/A REVIEW OF SYSTEMS: N/A PHYSICAL EXAMINATION Vital Signs - 24 hr 08/20/18 08/20/18 08/20/18 17:18 17:30 17:54 Temperature 99.6 F 99.5 F Pulse Rate Pulse Rate [ 103 H 101 H Apical] Respiratory 34 H 33 H 30 H Rate Blood Pressure Blood Pressure 122/72 106/62 [Left Arm] O2 Sat by Pulse 100 100 Oximetry (%) 08/20/18 08/20/18 08/20/18 18:00 18:30 19:00 Temperature 99 F Pulse Rate Pulse Rate [ 101 H 99 H 103 H Apical] Respiratory 32 H 31 H 31 H Rate Blood Pressure Blood Pressure 110/65 108/61 119/65 [Left Arm] O2 Sat by Pulse 100 100 100 Oximetry (%) 08/20/18 08/20/18 08/20/18 19:30 19:52 20:07 Temperature 99 F 99.1 F 97.2 F L Pulse Rate Pulse Rate [ 103 H 101 H Apical] Respiratory 20 24 H Rate Blood Pressure Blood Pressure 131/76 132/73 [Left Arm] O2 Sat by Pulse 98 100 Oximetry (%) 08/20/18 08/20/18 08/20/18 20:40 22:05 23:00 Temperature 98.1 F Pulse Rate 95 H Pulse Rate [ 102 H Apical] Respiratory 28 H 34 H 28 H Rate Blood Pressure 109/56 L Blood Pressure 136/72 [Left Arm] O2 Sat by Pulse 100 Oximetry (%) 08/20/18 08/20/18 08/21/18 23:03 23:32 00:57 Temperature Pulse Rate 92 H Pulse Rate [ Apical] Respiratory 28 H 28 H Rate Blood Pressure Blood Pressure [Left Arm] O2 Sat by Pulse 100 100 Oximetry (%) 08/21/18 08/21/18 08/21/18 03:00 03:33 06:00 Temperature 97.4 F L 98.2 F Pulse Rate 89 89 Pulse Rate [ Apical] Respiratory 20 30 H 20 Rate Blood Pressure 109/56 L 91/46 L Blood Pressure [Left Arm] O2 Sat by Pulse Oximetry (%) 08/21/18 08/21/18 08/21/18 06:37 06:38 08:15 Temperature Pulse Rate 94 H 94 H Pulse Rate [ Apical] Respiratory 27 H 24 H Rate Blood Pressure Blood Pressure [Left Arm] O2 Sat by Pulse 100 100 Oximetry (%) 08/21/18 08/21/18 08/21/18 09:00 12:00 12:11 Temperature 98 F Pulse Rate 97 H Pulse Rate [ Apical] Respiratory 26 H 18 26 H Rate Blood Pressure 112/61 Blood Pressure [Left Arm] O2 Sat by Pulse 100 Oximetry (%) 08/21/18 15:23 Temperature 98.2 F Pulse Rate 94 H Pulse Rate [ Apical] Respiratory 18 Rate Blood Pressure 103/60 Blood Pressure [Left Arm] O2 Sat by Pulse Oximetry (%) GENERAL: Awake, not following commands, on mech ventilation, cachectic. HEAD: several scabs on the scalp, healing. EYES: Pupils equal, round and reactive to light, sluggish, sclera anicteric, conjunctiva clear. EARS, NOSE, THROAT: Oropharynx not assessed-the pt didn't open his mouth. NECK: tracheostomy, hyperpigmentation on left side of the neck. LUNGS: Coarse breath sounds. No accessory muscle use. HEART: Irregular rate and rhythm, normal S1 and S2 without murmur,no rub or gallop. ABDOMEN: Soft, normoactive bowel sounds, no guarding, no rebound, +PEG and sutures present 1 cm above. No hepatomegaly or splenomegaly. UPPER EXTREMITIES: No peripheral edema, bruising, ecchymosis. LOWER EXTREMITIES: 2+ pulses, warm. No peripheral edema. NEUROLOGICAL: Eyes open, not following commands. SKIN: Warm, dry, bruising in upper extremities, senile purpura, longitudinal scar on chest. Laboratory Results - last 24 hr 08/20/18 08/20/18 08/20/18 14:03 14:24 16:00 WBC RBC Hgb Hct MCV MCH MCHC RDW Plt Count MPV Absolute Neuts (auto) Neutrophils % Lymphocytes % Monocytes % Eosinophils % Basophils % Nucleated RBC % PT with INR INR PTT (Actin FS) Sodium Potassium Chloride Carbon Dioxide Anion Gap BUN Creatinine Est GFR (CKD-EPI)AfAm Est GFR (CKD-EPI)NonAf POC Glucometer Random Glucose Lactic Acid Calcium Phosphorus Magnesium Ferritin 597 H Total Bilirubin AST ALT Alkaline Phosphatase Total Protein Albumin Total Amylase Lipase TSH Urine Color Yellow Urine Appearance Cloudy Urine pH 5.0 Ur Specific [place] 1.023 Urine Protein Trace Urine Glucose (UA) Negative Urine Ketones Negative Urine Blood 1+ H Urine Nitrite Negative Urine Bilirubin Negative Urine Urobilinogen 0.2 Ur Leukocyte Esterase Negative Urine WBC (Auto) 2 Urine RBC (Auto) 23 Urine Casts (Auto) 26 U Pathogenic Cast Auto None seen U Epithel Cells (Auto) 2.5 Urine Bacteria (Auto) 2.9 Blood Type B POSITIVE Antibody Screen Negative Crossmatch See Detail 08/20/18 08/20/18 08/21/18 17:00 20:31 06:23 WBC RBC Hgb Hct MCV MCH MCHC RDW Plt Count MPV Absolute Neuts (auto) Neutrophils % Lymphocytes % Monocytes % Eosinophils % Basophils % Nucleated RBC % PT with INR INR PTT (Actin FS) Sodium Potassium Chloride Carbon Dioxide Anion Gap BUN Creatinine Est GFR (CKD-EPI)AfAm Est GFR (CKD-EPI)NonAf POC Glucometer 85 Random Glucose Lactic Acid 2.0 Calcium Phosphorus Magnesium Ferritin Total Bilirubin AST ALT Alkaline Phosphatase Total Protein Albumin Total Amylase Lipase TSH Urine Color Urine Appearance Urine pH Ur Specific [place] Urine Protein Urine Glucose (UA) Urine Ketones Urine Blood Urine Nitrite Urine Bilirubin Urine Urobilinogen Ur Leukocyte Esterase Urine WBC (Auto) Urine RBC (Auto) Urine Casts (Auto) U Pathogenic Cast Auto U Epithel Cells (Auto) Urine Bacteria (Auto) Blood Type B POSITIVE Antibody Screen Crossmatch 08/21/18 08/21/18 08/21/18 06:49 06:49 06:49 WBC 9.8 RBC 2.28 L Hgb 7.7 L Hct 23.3 L MCV 102.1 H MCH 33.6 MCHC 32.9 RDW 25.5 H Plt Count 261 D MPV 8.7 Absolute Neuts (auto) 8.7 H Neutrophils % 88.8 H Lymphocytes % 3.6 L Monocytes % 4.2 Eosinophils % 3.1 D Basophils % 0.3 Nucleated RBC % 0 PT with INR 16.10 H INR 1.36 H PTT (Actin FS) 38.1 H Sodium 146 H Potassium 3.8 Chloride 108 H Carbon Dioxide 35 H Anion Gap 3 L BUN 30 H Creatinine 0.3 L Est GFR (CKD-EPI)AfAm 146.33 Est GFR (CKD-EPI)NonAf 126.26 POC Glucometer Random Glucose 85 Lactic Acid Calcium 9.1 Phosphorus 3.3 Magnesium 2.5 H Ferritin Total Bilirubin 0.9 AST 21 ALT 17 Alkaline Phosphatase 111 Total Protein 5.6 L Albumin 1.9 L Total Amylase 30 Lipase 64 L TSH 2.58 Urine Color Urine Appearance Urine pH Ur Specific [place] Urine Protein Urine Glucose (UA) Urine Ketones Urine Blood Urine Nitrite Urine Bilirubin Urine Urobilinogen Ur Leukocyte Esterase Urine WBC (Auto) Urine RBC (Auto) Urine Casts (Auto) U Pathogenic Cast Auto U Epithel Cells (Auto) Urine Bacteria (Auto) Blood Type Antibody Screen Crossmatch 08/21/18 15:10 WBC RBC Hgb Hct MCV MCH MCHC RDW Plt Count MPV Absolute Neuts (auto) Neutrophils % Lymphocytes % Monocytes % Eosinophils % Basophils % Nucleated RBC % PT with INR INR PTT (Actin FS) Sodium Potassium Chloride Carbon Dioxide Anion Gap BUN Creatinine Est GFR (CKD-EPI)AfAm Est GFR (CKD-EPI)NonAf POC Glucometer 83 Random Glucose Lactic Acid Calcium Phosphorus Magnesium Ferritin Total Bilirubin AST ALT Alkaline Phosphatase Total Protein Albumin Total Amylase Lipase TSH Urine Color Urine Appearance Urine pH Ur Specific [place] Urine Protein Urine Glucose (UA) Urine Ketones Urine Blood Urine Nitrite Urine Bilirubin Urine Urobilinogen Ur Leukocyte Esterase Urine WBC (Auto) Urine RBC (Auto) Urine Casts (Auto) U Pathogenic Cast Auto U Epithel Cells (Auto) Urine Bacteria (Auto) Blood Type Antibody Screen Crossmatch Active Medications Generic Name Dose Route Start Last Admin Trade Name Freq PRN Reason Stop Dose Admin Acetaminophen 650 mg 08/20/18 17:31 Tylenol - PO Q8H PRN FEVER Acyclovir 200 mg 08/20/18 22:00 08/21/18 11:54 Zovirax Oral Suspension - GT 200 mg BID MAGDALNEE Administration Albuterol Sulfate 1 amp 08/20/18 17:19 Ventolin 0.083% Nebulizer Soln - NEB Q6H PRN SHORT OF BREATH/WHEEZING Albuterol/Ipratropium 1 amp 08/20/18 17:33 Duoneb - NEB Q6H PRN SHORTNESS OF BREATH Atorvastatin Calcium 80 mg 08/20/18 22:00 08/20/18 23:42 Lipitor - GT 80 mg HS MAGDALENE Administration Clonazepam 0.5 mg 08/20/18 17:34 08/20/18 23:42 Klonopin - GT 08/27/18 17:33 0.5 mg Q8H PRN Administration ANXIETY Docusate Sodium 150 mg 08/21/18 10:00 08/21/18 11:52 Colace Liquid - GT Not Given DAILY MAGDALENE Hydrocortisone 1 applic 08/20/18 22:00 08/21/18 11:52 Anusol 2.5% Hc Cream - TP 1 applic BID MAGDALENE Administration Sodium Chloride 1,000 mls @ 50 mls/hr 08/20/18 17:30 08/20/18 20:45 Normal Saline - IV 08/21/18 17:21 50 mls/hr ASDIR MAGDALENE Administration Famotidine/Sodium Chloride 20 mg in 50 mls @ 100 mls/hr 08/20/18 22:00 11:53 Pepcid 20 Mg Premixed Ivpb - IVPB 100 mls/hr BID MAGDALENE Administration Piperacillin Sod/Tazobactam 50 mls @ 100 mls/hr 08/21/18 10:00 08/21/18 11:54 Sod 3.375 gm/ Dextrose IVPB 100 mls/hr Q8H-IV MAGDALENE Administration Protocol Metoprolol Tartrate 12.5 mg 08/20/18 22:00 08/21/18 11:53 Lopressor - GT 12.5 mg BID MAGDALENE Administration Pneumococcal 13-Valent Conj Vacc 0.5 ml 08/21/18 16:00 Prevnar 13 Syringe - IM 08/21/18 16:01 .ONCE ONE Polyethylene Glycol 17 gm 08/21/18 10:00 08/21/18 11:53 Miralax (For Daily Use) - GT Not Given DAILY MAGDALENE Silver Sulfadiazine 1 applic 08/21/18 10:00 Silvadene - TP DAILY MAGDALENE ASSESSMENT/PLAN: The patient is a 78 yo male with PMH of Non Hodgkins lymphoma, COPD, CAD s/p CABG, a.fib, CVA s/p trach, PEG, VZV on acyclovir presents from [facility] with anemia, Hb of 7, and positive FOBT. macrocytic anemia NHL COPD CAD CABG CVA s/p PEG Plan: No overt bleeding reported. Pt received 2u prbc. Macrocytosis may be related to blood loss. We recommend iron studies, folate, B12, TSH, haptoglobin/LDH, sedimentation rate. Dispo: We will continue to follow the patient. Thank you for this consultative opportunity. Problem List - Problems (1) A-fib Code(s): I48.91 - UNSPECIFIED ATRIAL FIBRILLATION (2) ASHD (arteriosclerotic heart disease) Code(s): I25.10 - ATHSCL HEART DISEASE OF [place] CORONARY ARTERY W/O ANG PCTRS (3) Anemia Code(s): D64.9 - ANEMIA, UNSPECIFIED Qualifiers: Anemia type: unspecified type Qualified Code(s): D64.9 - Anemia, unspecified (4) Chronic respiratory failure Code(s): J96.10 - CHRONIC RESPIRATORY FAILURE, UNSP W HYPOXIA OR HYPERCAPNIA (5) GERD (gastroesophageal reflux disease) Code(s): K21.9 - GASTRO-ESOPHAGEAL REFLUX DISEASE WITHOUT ESOPHAGITIS (6) HLD (hyperlipidemia) Code(s): E78.5 - HYPERLIPIDEMIA, UNSPECIFIED (7) HTN (hypertension) Code(s): I10 - ESSENTIAL (PRIMARY) HYPERTENSION (8) Lymphoma Code(s): C85.90 - NON-HODGKIN LYMPHOMA, UNSPECIFIED, UNSPECIFIED SITE (9) S/P CABG (coronary artery bypass graft) Code(s): Z95.1 - PRESENCE OF AORTOCORONARY BYPASS GRAFT (10) Sepsis Code(s): A41.9 - SEPSIS, UNSPECIFIED ORGANISM Visit type - Emergency Visit Emergency Visit: Yes ED Registration Date: 08/20/18 Care time: The patient presented to the Emergency Department on the above date and was hospitalized for further evaluation of their emergent condition. - New Patient This patient is new to me today: Yes Date on this admission: 08/21/18 - Critical Care Critical Care patient: No
[2018-08-21] MEDS ORDERED: PNEUMOC 13-VAL CONJ-DIP CRM/PF 0.5 ML DISP.SYRIN IM ONE (16:00)
[2018-08-21 16:15] VITALS: BMI 17.4
[2018-08-21] MEDS: SILVER SULFADIAZINE 1% TOP CREAM 50 GM JAR TP SCH (19:11)
[2018-08-21] MEDS ORDERED: PT OWN MED DRAWER 7, Y5N ONE (21:35)
[2018-08-21] MEDS: ATORVASTATIN CA 80 MG TABLET (FP) GT SCH (21:44)
[2018-08-22] MEDS ORDERED: DEXTROSE 5%-WATER - 50 ML IVPB ONE ×3 (00:30→17:14)
[2018-08-22] MEDS ORDERED: PIPERACILLIN/TAZOBACTAM 3.375 GM VIAL IVPB ONE ×3 (00:30→17:14)
[2018-08-22] MEDS: PIPERACILLIN/TAZOB 3.375 GM 3.375 GM in DEXTROSE 5%-WATER - 50 ML IVPB SCH ×3 (01:36→17:17)
--- NOTE | 2018-08-22 08:03 | PN ---
Teaching Attending Note Name of Resident: Ligia Hyde ATTENDING PHYSICIAN STATEMENT I saw and evaluated the patient. I reviewed the resident's note and discussed the case with the resident. I agree with the resident's findings and plan as documented. SUBJECTIVE: Patient seen and examined 78 year old transferred from [place] with anemia Hx of NHL, copd, atrial fib, PEG, trach, s/p cva. Noted to have macrocycytic anemia. Has received packed cells Last Vital Signs Temp Pulse Resp BP Pulse Ox 97.9 F 84 21 H 118/63 98 08/22/18 06:00 08/22/18 06:00 08/22/18 06:24 08/22/18 06:00 08/21/18 21:00 HEENT: LAURO, EOM Intact Oropharynx: No thrush, No mucositis Neck:trach Nodes: Without adenopathy sternotomy scar Cor: atrial fib Lungs: rhonchi Abd: Soft, PEG, sutures Ext:No significant edema,SCD LLE reggie medial popliteal area Skin: Numerous ecchymoses Current Medications Generic Name Dose Route Start Last Admin Trade Name Freq PRN Reason Stop Dose Admin Acetaminophen 650 mg 08/20/18 17:31 08/21/18 21:45 Tylenol - PO 650 mg Q8H PRN Administration FEVER Acyclovir 200 mg 08/20/18 22:00 08/21/18 21:44 Zovirax Oral Suspension - GT 200 mg BID MAGDALENE Administration Albuterol Sulfate 1 amp 08/20/18 17:19 Ventolin 0.083% Nebulizer Soln - NEB Q6H PRN SHORT OF BREATH/WHEEZING Albuterol/Ipratropium 1 amp 08/20/18 17:33 Duoneb - NEB Q6H PRN SHORTNESS OF BREATH Atorvastatin Calcium 80 mg 08/20/18 22:00 08/21/18 21:44 Lipitor - GT 80 mg HS MAGDALENE Administration Clonazepam 0.5 mg 08/20/18 17:34 08/20/18 23:42 Klonopin - GT 08/27/18 17:33 0.5 mg Q8H PRN Administration ANXIETY Docusate Sodium 150 mg 08/21/18 10:00 08/21/18 11:52 Colace Liquid - GT Not Given DAILY MAGDALENE Hydrocortisone 1 applic 08/20/18 22:00 08/21/18 22:56 Anusol 2.5% Hc Cream - TP 1 applic BID MAGDALENE Administration Famotidine/Sodium Chloride 20 mg in 50 mls @ 100 mls/hr 08/20/18 22:00 21:44 Pepcid 20 Mg Premixed Ivpb - IVPB 100 mls/hr BID MAGDALENE Administration Piperacillin Sod/Tazobactam 50 mls @ 100 mls/hr 08/21/18 10:00 08/22/18 01:36 Sod 3.375 gm/ Dextrose IVPB 100 mls/hr Q8H-IV MAGDALENE Administration Protocol Metoprolol Tartrate 12.5 mg 08/20/18 22:00 08/21/18 21:44 Lopressor - GT 12.5 mg BID MAGDALENE Administration Polyethylene Glycol 17 gm 08/21/18 10:00 08/21/18 11:53 Miralax (For Daily Use) - GT Not Given DAILY MAGDALENE Silver Sulfadiazine 1 applic 08/21/18 10:00 08/21/18 19:11 Silvadene - TP 1 applic DAILY MAGDALENE Administration Abnormal Lab Results 08/20/18 08/21/18 08/21/18 14:24 06:49 06:49 PT with INR 16.10 H INR 1.36 H PTT (Actin FS) 38.1 H Sodium 146 H Chloride 108 H Carbon Dioxide 35 H Anion Gap 3 L BUN 30 H Creatinine 0.3 L Magnesium 2.5 H Total Protein 5.6 L Albumin 1.9 L Lipase 64 L Crossmatch See Detail OBJECTIVE: Impression: Macrocytic anemia Hemoccult positive Hx of NHL Hx CVA Hx AF Hx traqch Hx PEG COPD Check reticulocytosis whic may expalin macrocytosis Check megaloblastic cause - B-12/folate If non revealing consider flow ASSESSMENT AND PLAN:
[2018-08-22 08:06] LABS: BASO % 0.4 % (0-2.0); EOS % 3.2 % (0-4.5); HEMATOCRIT 29.7 % (35.4-49); HEMOGLOBIN 10.1 GM/dL (11.7-16.9); LYMPH % 5.3 % (8-40); MCH 32.6 pg (25.7-33.7); MEAN CELL VOLUME 95.9 fl (80-96); MEAN PLT VOLUME 9.1 fl (7.5-11.1); MONO % 4.9 % (3.8-10.2); NEUT % 86.2 % (42.8-82.8); PLATELET COUNT 239 K/MM3 (134-434); RDW 23.9 % (11.9-15.9); WHITE BLOOD COUNT 7.5 K/mm3 (4.0-10.0)
[2018-08-22 08:06] LABS: SERUM IRON SATURATION 6 % (15-55); TOTAL IRON BINDING CAPACITY 188 ug/dL (250-450); UIBC 177 ug/dL (111-343)
[2018-08-22 08:57] LABS: ALBUMIN 1.8 g/dl (3.4-5.0); BILIRUBIN,TOTAL 0.8 mg/dL (0.2-1); CALCIUM 8.7 mg/dL (8.5-10.1); CREATININE 0.4 mg/dL (0.55-1.3); POTASSIUM 3.6 mmol/L (3.5-5.1); TOT PROT 5.5 g/dl (6.4-8.2)
[2018-08-22] MEDS: SILVER SULFADIAZINE 1% TOP CREAM 50 GM JAR TP SCH (10:27)
[2018-08-22] MEDS: METOPROLOL TARTRATE 25 MG TABLET (FP) GT SCH ×2 (11:08→23:12)
[2018-08-22] MEDS: ACYCLOVIR 200 MG/5 ML LIQUID GT SCH ×2 (11:31→23:14)
--- NOTE | 2018-08-22 11:51 | PN ---
Progress Note (short form) - Note Progress Note: PULMONARY Vented on volume assist control. No fevers recorded. Vital Signs Period Temp Pulse Resp BP Sys/Og Pulse Ox Last 24 Hr 97.6 F-99.4 F 76-97 16-30 96-135/58-76 98-100 Gen: vented, poorly responsive Heart: RRR Lung: scattered rhonchi Abd: soft, nontender Ext: no edema CBC, BMP 08/22/18 07:20 08/22/18 07:20 Active Medications Acetaminophen (Tylenol -) 650 mg PO Q8H PRN PRN Reason: FEVER Last Admin: 08/21/18 21:45 Dose: 650 mg Acyclovir (Zovirax Oral Suspension -) 200 mg GT BID [facility] Last Admin: 08/22/18 11:31 Dose: 200 mg Albuterol Sulfate (Ventolin 0.083% Nebulizer Soln -) 1 amp NEB Q6H PRN PRN Reason: SHORT OF BREATH/WHEEZING Albuterol/Ipratropium (Duoneb -) 1 amp NEB Q6H PRN PRN Reason: SHORTNESS OF BREATH Atorvastatin Calcium (Lipitor -) 80 mg GT HS [facility] Last Admin: 08/21/18 21:44 Dose: 80 mg Clonazepam (Klonopin -) 0.5 mg GT Q8H PRN PRN Reason: ANXIETY Stop: 08/27/18 17:33 Last Admin: 08/20/18 23:42 Dose: 0.5 mg Docusate Sodium (Colace Liquid -) 150 mg GT DAILY [facility] Last Admin: 08/21/18 11:52 Dose: Not Given Hydrocortisone (Anusol 2.5% Hc Cream -) 1 applic TP BID [facility] Last Admin: 08/21/18 22:56 Dose: 1 applic Famotidine/Sodium Chloride (Pepcid 20 Mg Premixed Ivpb -) 20 mg in 50 mls @ 100 mls/hr IVPB BID MAGDALENE Last Admin: 08/21/18 21:44 Dose: 100 mls/hr Piperacillin Sod/Tazobactam (Sod 3.375 gm/ Dextrose) 50 mls @ 100 mls/hr IVPB Q8H-IV MAGDALENE; Protocol Last Admin: 08/22/18 10:57 Dose: 100 mls/hr Metoprolol Tartrate (Lopressor -) 12.5 mg GT BID [facility] Last Admin: 08/22/18 11:08 Dose: 12.5 mg Polyethylene Glycol (Miralax (For Daily Use) -) 17 gm GT DAILY [facility] Last Admin: 08/21/18 11:53 Dose: Not Given Silver Sulfadiazine (Silvadene -) 1 applic TP DAILY [facility] Last Admin: 08/21/18 19:11 Dose: 1 applic A/P Chronic Respiratory Failure Pneumnoia Atrial Fibrillation CAD s/p CABG h/o CVA - continue antibiotics per ID - f/u cultures - inhaled bronchodilators - taper Fio2 to keep SpO2 >90% - continue volume assist control - poor candidate for weaning due to mental status - enteral feeds - DVT/GI prophylaxis
[2018-08-22] MEDS: FAMOTIDINE 20 MG/50 ML IVPB 20 MG/50 ML MG IVPB SCH ×2 (12:00→23:14)
--- NOTE | 2018-08-22 12:55 | PN ---
Progress Note, Physician Chief Complaint: patient non verbal having dark loose stools DNR s/p PRBC occult blood positive - Current Medication List Current Medications: Active Medications Acetaminophen (Tylenol -) 650 mg PO Q8H PRN PRN Reason: FEVER Last Admin: 08/21/18 21:45 Dose: 650 mg Acyclovir (Zovirax Oral Suspension -) 200 mg GT BID [facility] Last Admin: 08/22/18 11:31 Dose: 200 mg Albuterol Sulfate (Ventolin 0.083% Nebulizer Soln -) 1 amp NEB Q6H PRN PRN Reason: SHORT OF BREATH/WHEEZING Albuterol/Ipratropium (Duoneb -) 1 amp NEB Q6H PRN PRN Reason: SHORTNESS OF BREATH Atorvastatin Calcium (Lipitor -) 80 mg GT HS [facility] Last Admin: 08/21/18 21:44 Dose: 80 mg Clonazepam (Klonopin -) 0.5 mg GT Q8H PRN PRN Reason: ANXIETY Stop: 08/27/18 17:33 Last Admin: 08/20/18 23:42 Dose: 0.5 mg Docusate Sodium (Colace Liquid -) 150 mg GT DAILY [facility] Last Admin: 08/21/18 11:52 Dose: Not Given Hydrocortisone (Anusol 2.5% Hc Cream -) 1 applic TP BID [facility] Last Admin: 08/21/18 22:56 Dose: 1 applic Famotidine/Sodium Chloride (Pepcid 20 Mg Premixed Ivpb -) 20 mg in 50 mls @ 100 mls/hr IVPB BID [facility] Last Admin: 08/22/18 12:00 Dose: 100 mls/hr Piperacillin Sod/Tazobactam (Sod 3.375 gm/ Dextrose) 50 mls @ 100 mls/hr IVPB Q8H-IV [facility]; Protocol Last Admin: 08/22/18 10:57 Dose: 100 mls/hr Metoprolol Tartrate (Lopressor -) 12.5 mg GT BID [facility] Last Admin: 08/22/18 11:08 Dose: 12.5 mg Polyethylene Glycol (Miralax (For Daily Use) -) 17 gm GT DAILY [facility] Last Admin: 08/21/18 11:53 Dose: Not Given Silver Sulfadiazine (Silvadene -) 1 applic TP DAILY [facility] Last Admin: 08/21/18 19:11 Dose: 1 applic - Objective Vital Signs: Vital Signs Temperature 98.3 F 08/22/18 10:00 Pulse Rate 94 H 08/22/18 10:00 Respiratory Rate 18 08/22/18 11:36 Blood Pressure 135/73 08/22/18 10:00 O2 Sat by Pulse Oximetry (%) 100 08/22/18 08:23 Constitutional: Yes: Calm, Thin Neck: Yes: Other (trach) Cardiovascular: Yes: Regular Rate and Rhythm, S1, S2 Respiratory: Yes: Mechanically Ventilated Gastrointestinal: Yes: Normal Bowel Sounds, Soft, Other (g tube) Edema: No Labs: CBC, BMP 08/22/18 07:20 08/22/18 07:20 INR, PTT INR 1.36 (0.83-1.09) H 08/21/18 06:49 Problem List - Problems (1) Anemia Assessment/Plan: seen by GI family considering comfort care palliative consult ordered DNR h/h better Code(s): D64.9 - ANEMIA, UNSPECIFIED Qualifiers: Anemia type: unspecified type Qualified Code(s): D64.9 - Anemia, unspecified (2) Leukocytosis Assessment/Plan: inc wbc orderd zosyn per ID awaiiting cultures Microbiology 08/21/18 12:50 Urine For Antigen Detection Legionella Antigen - Final 08/21/18 12:50 Urine For Antigen Detection Streptococcus pneumoniae Antigen (M - Final 08/20/18 14:06 Blood - Peripheral Venous Blood Culture - Preliminary NO GROWTH OBTAINED AFTER 24 HOURS, INCUBATION TO CONTINUE FOR 4 DAYS. 08/20/18 14:06 Blood - Peripheral Venous Blood Culture - Preliminary NO GROWTH OBTAINED AFTER 24 HOURS, INCUBATION TO CONTINUE FOR 4 DAYS. Code(s): D72.829 - ELEVATED WHITE BLOOD CELL COUNT, UNSPECIFIED Assessment/Plan palliatice care consult for goals of care
[2018-08-22] MEDS: POLYETHYLENE GLYCOL 3350 119 GM BTL GT SCH (13:08)
[2018-08-22] MEDS: DOCUSATE NA 100 MG/10 ML UNIT-DOSE CUPS GT SCH (13:08)
[2018-08-22] MEDS: HYDROCORTISONE 2.5% TOPICAL CREAM 30 GM TUBE TP SCH ×2 (13:36→23:54)
--- NOTE | 2018-08-22 16:07 | PN ---
Physical Exam: SUBJECTIVE: Patient seen and examined, non verbal. OBJECTIVE: Vital Signs Period Temp Pulse Resp BP Sys/Og Pulse Ox Last 24 Hr 97.5 F-99.4 F 76-94 14-24 96-135/55-76 98-100 GENERAL: Sleeping, not following commands, on mech ventilation, cachectic. HEAD: several scabs on the scalp, healing. EYES: Pupils equal, round and reactive to light, sluggish, sclera anicteric, conjunctiva clear. EARS, NOSE, THROAT: Oropharynx not assessed-the pt didn't open his mouth. NECK: Tracheostomy, hyperpigmentation on left side of the neck. LUNGS: Coarse breath sounds, rhonchi b/l. No accessory muscle use. HEART: Irregular rate and rhythm, normal S1 and S2 without murmur,no rub or gallop. ABDOMEN: Soft, normoactive bowel sounds, no guarding, no rebound, +PEG and sutures present 1 cm above. No hepatomegaly or splenomegaly. UPPER EXTREMITIES: No peripheral edema, bruising, ecchymosis. LOWER EXTREMITIES: 2+ pulses, warm. No peripheral edema. NEUROLOGICAL: Eyes open, not following commands. SKIN: Warm, dry, bruising in upper extremities, senile purpura, longitudinal scar on chest. Laboratory Results - last 24 hr 08/20/18 08/20/18 08/20/18 14:03 14:03 14:24 WBC RBC Hgb Hct MCV MCH MCHC RDW Plt Count MPV Absolute Neuts (auto) Neutrophils % Lymphocytes % Monocytes % Eosinophils % Basophils % Nucleated RBC % ESR Haptoglobin 390 H Sodium Potassium Chloride Carbon Dioxide Anion Gap BUN Creatinine Est GFR (CKD-EPI)AfAm Est GFR (CKD-EPI)NonAf POC Glucometer Random Glucose Calcium Iron 11 L TIBC 188 L Iron Saturation 6 L Ferritin Total Bilirubin AST ALT Alkaline Phosphatase Total Protein Albumin Vitamin B12 Serum Folate TSH Stool Occult Blood Blood Type B POSITIVE Antibody Screen Negative Crossmatch See Detail 08/21/18 08/22/18 08/22/18 21:24 06:18 07:20 WBC 7.5 RBC 3.10 L Hgb 10.1 L Hct 29.7 L D MCV 95.9 D MCH 32.6 MCHC 34.0 RDW 23.9 H Plt Count 239 MPV 9.1 Absolute Neuts (auto) 6.5 Neutrophils % 86.2 H Lymphocytes % 5.3 L D Monocytes % 4.9 Eosinophils % 3.2 Basophils % 0.4 Nucleated RBC % 0 ESR Haptoglobin Sodium Potassium Chloride Carbon Dioxide Anion Gap BUN Creatinine Est GFR (CKD-EPI)AfAm Est GFR (CKD-EPI)NonAf POC Glucometer 78 88 Random Glucose Calcium Iron TIBC Iron Saturation Ferritin Total Bilirubin AST ALT Alkaline Phosphatase Total Protein Albumin Vitamin B12 Serum Folate TSH Stool Occult Blood Blood Type Antibody Screen Crossmatch 08/22/18 08/22/18 08/22/18 07:20 07:20 11:06 WBC RBC Hgb Hct MCV MCH MCHC RDW Plt Count MPV Absolute Neuts (auto) Neutrophils % Lymphocytes % Monocytes % Eosinophils % Basophils % Nucleated RBC % ESR 106 H Haptoglobin Sodium 148 H Potassium 3.6 Chloride 111 H Carbon Dioxide 32 Anion Gap 5 L BUN 28 H Creatinine 0.4 L Est GFR (CKD-EPI)AfAm 130.02 Est GFR (CKD-EPI)NonAf 112.18 POC Glucometer 82 Random Glucose 79 Calcium 8.7 Iron TIBC Iron Saturation Ferritin 1156.4 H Total Bilirubin 0.8 AST 22 ALT 15 Alkaline Phosphatase 106 Total Protein 5.5 L Albumin 1.8 L Vitamin B12 1585 H Serum Folate 27 H TSH 3.55 D Stool Occult Blood Blood Type Antibody Screen Crossmatch 08/22/18 08/22/18 13:10 16:01 WBC RBC Hgb Hct MCV MCH MCHC RDW Plt Count MPV Absolute Neuts (auto) Neutrophils % Lymphocytes % Monocytes % Eosinophils % Basophils % Nucleated RBC % ESR Haptoglobin Sodium Potassium Chloride Carbon Dioxide Anion Gap BUN Creatinine Est GFR (CKD-EPI)AfAm Est GFR (CKD-EPI)NonAf POC Glucometer 90 Random Glucose Calcium Iron TIBC Iron Saturation Ferritin Total Bilirubin AST ALT Alkaline Phosphatase Total Protein Albumin Vitamin B12 Serum Folate TSH Stool Occult Blood Positive Blood Type Antibody Screen Crossmatch Active Medications Generic Name Dose Route Start Last Admin Trade Name Freq PRN Reason Stop Dose Admin Acetaminophen 650 mg 08/20/18 17:31 08/21/18 21:45 Tylenol - PO 650 mg Q8H PRN Administration FEVER Acyclovir 200 mg 08/20/18 22:00 08/22/18 11:31 Zovirax Oral Suspension - GT 200 mg BID [facility] Administration Albuterol Sulfate 1 amp 08/20/18 17:19 Ventolin 0.083% Nebulizer Soln - NEB Q6H PRN SHORT OF BREATH/WHEEZING Albuterol/Ipratropium 1 amp 08/20/18 17:33 Duoneb - NEB Q6H PRN SHORTNESS OF BREATH Atorvastatin Calcium 80 mg 08/20/18 22:00 08/21/18 21:44 Lipitor - GT 80 mg HS [facility] Administration Clonazepam 0.5 mg 08/20/18 17:34 08/20/18 23:42 Klonopin - GT 08/27/18 17:33 0.5 mg Q8H PRN Administration ANXIETY Docusate Sodium 150 mg 08/21/18 10:00 08/22/18 13:08 Colace Liquid - GT Not Given DAILY [facility] Hydrocortisone 1 applic 08/20/18 22:00 08/22/18 13:36 Anusol 2.5% Hc Cream - TP 1 applic BID [facility] Administration Famotidine/Sodium Chloride 20 mg in 50 mls @ 100 mls/hr 08/20/18 22:00 12:00 Pepcid 20 Mg Premixed Ivpb - IVPB 100 mls/hr BID [facility] Administration Piperacillin Sod/Tazobactam 50 mls @ 100 mls/hr 08/21/18 10:00 08/22/18 10:57 Sod 3.375 gm/ Dextrose IVPB 100 mls/hr Q8H-IV [facility] Administration Protocol Metoprolol Tartrate 12.5 mg 08/20/18 22:00 08/22/18 11:08 Lopressor - GT 12.5 mg BID [facility] Administration Polyethylene Glycol 17 gm 08/21/18 10:00 08/22/18 13:08 Miralax (For Daily Use) - GT Not Given DAILY [facility] Silver Sulfadiazine 1 applic 08/21/18 10:00 08/21/18 19:11 Silvadene - TP 1 applic DAILY [facility] Administration ASSESSMENT/PLAN: The patient is a 78 yo male with PMH of Non Hodgkins lymphoma, COPD, CAD s/p CABG, a.fib, CVA s/p trach, PEG, 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 macrocytic anemia NHL COPD CAD CABG CVA s/p PEG Plan: No overt bleeding reported. Pt received 2u prbc. Macrocytosis likely related to blood loss. Hg, MCV improved today. Improved with blood transfusion. Folate 27, B12 1585, TSH nl, haptoglobin 390, sedimentation rate 106. Dispo: We will continue to follow the patient. Thank you for this consultative opportunity. Problem List - Problems (1) A-fib Code(s): I48.91 - UNSPECIFIED ATRIAL FIBRILLATION (2) ASHD (arteriosclerotic heart disease) Code(s): I25.10 - ATHSCL HEART DISEASE OF [place] CORONARY ARTERY W/O ANG PCTRS (3) Anemia Code(s): D64.9 - ANEMIA, UNSPECIFIED Qualifiers: Anemia type: unspecified type Qualified Code(s): D64.9 - Anemia, unspecified (4) Chronic respiratory failure Code(s): J96.10 - CHRONIC RESPIRATORY FAILURE, UNSP W HYPOXIA OR HYPERCAPNIA (5) GERD (gastroesophageal reflux disease) Code(s): K21.9 - GASTRO-ESOPHAGEAL REFLUX DISEASE WITHOUT ESOPHAGITIS (6) HLD (hyperlipidemia) Code(s): E78.5 - HYPERLIPIDEMIA, UNSPECIFIED (7) HTN (hypertension) Code(s): I10 - ESSENTIAL (PRIMARY) HYPERTENSION (8) Lymphoma Code(s): C85.90 - NON-HODGKIN LYMPHOMA, UNSPECIFIED, UNSPECIFIED SITE (9) S/P CABG (coronary artery bypass graft) Code(s): Z95.1 - PRESENCE OF AORTOCORONARY BYPASS GRAFT (10) Sepsis Code(s): A41.9 - SEPSIS, UNSPECIFIED ORGANISM Visit type - Emergency Visit Emergency Visit: Yes ED Registration Date: 08/20/18 Care time: The patient presented to the Emergency Department on the above date and was hospitalized for further evaluation of their emergent condition. - New Patient This patient is new to me today: No - Critical Care Critical Care patient: No - Discharge Referral Referred to [facility] Med P.C.: No
[2018-08-22] MEDS ORDERED: PT OWN MED DRAWER 7, Y5N ONE (20:19)
[2018-08-22] MEDS: ATORVASTATIN CA 80 MG TABLET (FP) GT SCH (23:12)
[2018-08-23] MEDS ORDERED: PIPERACILLIN/TAZOBACTAM 3.375 GM VIAL IVPB ONE ×2 (02:26→09:03)
[2018-08-23] MEDS ORDERED: DEXTROSE 5%-WATER - 50 ML IVPB ONE ×2 (02:26→09:03)
[2018-08-23] MEDS: PIPERACILLIN/TAZOB 3.375 GM 3.375 GM in DEXTROSE 5%-WATER - 50 ML IVPB SCH ×2 (02:46→09:15)
[2018-08-23] MEDS: clonazePAM 0.5 MG TABLET GT PRN ×2 (02:57→15:23)
[2018-08-23] MEDS ORDERED: MORPHINE SULFATE 2 MG/ML VIAL IVPUSH PRN ×2 (03:11→11:39)
[2018-08-23] MEDS: ALBUTEROL SO4 2.5/IPRATROPIUM 0.5 INH SOL 3 ML VIAL.NEB. NEB PRN ×2 (03:46→10:35)
[2018-08-23] MEDS ORDERED: PT OWN MED DRAWER 7, Y5N ONE ×2 (07:02→09:03)
[2018-08-23] MEDS: ACYCLOVIR 200 MG/5 ML LIQUID GT SCH (09:15)
[2018-08-23] MEDS: FAMOTIDINE 20 MG/50 ML IVPB 20 MG/50 ML MG IVPB SCH (09:15)
[2018-08-23] MEDS: METOPROLOL TARTRATE 25 MG TABLET (FP) GT SCH (09:16)
[2018-08-23] MEDS: HYDROCORTISONE 2.5% TOPICAL CREAM 30 GM TUBE TP SCH (09:17)
[2018-08-23] MEDS: DOCUSATE NA 100 MG/10 ML UNIT-DOSE CUPS GT SCH (09:17)
[2018-08-23] MEDS: POLYETHYLENE GLYCOL 3350 119 GM BTL GT SCH (09:17)
[2018-08-23] MEDS: SILVER SULFADIAZINE 1% TOP CREAM 50 GM JAR TP SCH (09:17)
--- NOTE | 2018-08-23 11:42 | PN ---
Progress Note, Physician Chief Complaint: patient on vent, DNR, - Current Medication List Current Medications: Active Medications Acetaminophen (Tylenol -) 650 mg PO Q8H PRN PRN Reason: FEVER Last Admin: 08/21/18 21:45 Dose: 650 mg Acyclovir (Zovirax Oral Suspension -) 200 mg GT BID [facility] Last Admin: 08/23/18 09:15 Dose: 200 mg Albuterol Sulfate (Ventolin 0.083% Nebulizer Soln -) 1 amp NEB Q6H PRN PRN Reason: SHORT OF BREATH/WHEEZING Last Admin: 08/22/18 21:25 Dose: 1 amp Albuterol/Ipratropium (Duoneb -) 1 amp NEB Q6H PRN PRN Reason: SHORTNESS OF BREATH Last Admin: 08/23/18 10:35 Dose: 1 amp Atorvastatin Calcium (Lipitor -) 80 mg GT HS [facility] Last Admin: 08/22/18 23:12 Dose: 80 mg Clonazepam (Klonopin -) 0.5 mg GT Q8H PRN PRN Reason: ANXIETY Stop: 08/27/18 17:33 Last Admin: 08/23/18 02:57 Dose: 0.5 mg Docusate Sodium (Colace Liquid -) 150 mg GT DAILY [facility] Last Admin: 08/23/18 09:17 Dose: Not Given Hydrocortisone (Anusol 2.5% Hc Cream -) 1 applic TP BID [facility] Last Admin: 08/23/18 09:17 Dose: 1 applic Famotidine/Sodium Chloride (Pepcid 20 Mg Premixed Ivpb -) 20 mg in 50 mls @ 100 mls/hr IVPB BID [facility] Last Admin: 08/23/18 09:15 Dose: 100 mls/hr Piperacillin Sod/Tazobactam (Sod 3.375 gm/ Dextrose) 50 mls @ 100 mls/hr IVPB Q8H-IV [facility]; Protocol Last Admin: 08/23/18 09:15 Dose: 100 mls/hr Metoprolol Tartrate (Lopressor -) 12.5 mg GT BID [facility] Last Admin: 08/23/18 09:16 Dose: 12.5 mg Morphine Sulfate (Morphine Sulfate) 2 mg IVPUSH Q4H PRN PRN Reason: Resp distress & tachypnea Stop: 08/24/18 03:10 Polyethylene Glycol (Miralax (For Daily Use) -) 17 gm GT DAILY [facility] Last Admin: 08/23/18 09:17 Dose: Not Given Silver Sulfadiazine (Silvadene -) 1 applic TP DAILY [facility] Last Admin: 08/23/18 09:17 Dose: 1 applic - Objective Vital Signs: Vital Signs Temperature 98.2 F 08/23/18 06:00 Pulse Rate 92 H 08/23/18 09:20 Respiratory Rate 32 H 08/23/18 10:05 Blood Pressure 106/57 L 08/23/18 06:00 O2 Sat by Pulse Oximetry (%) 95 08/23/18 09:20 Constitutional: Yes: Calm, Thin Neck: Yes: Other (trach) Cardiovascular: Yes: Regular Rate and Rhythm, S1, S2 Respiratory: Yes: Diminished, Mechanically Ventilated Gastrointestinal: Yes: Normal Bowel Sounds, Soft Edema: No Neurological: Yes: Other (non verbal) Labs: CBC, BMP 08/22/18 07:20 08/22/18 07:20 INR, PTT INR 1.36 (0.83-1.09) H 08/21/18 06:49 Problem List - Problems (1) Anemia Assessment/Plan: seen by GI family considering comfort care palliative consult ordered DNR h/h better occult postive no EGD no intervention family wants comfort care Code(s): D64.9 - ANEMIA, UNSPECIFIED Qualifiers: Anemia type: unspecified type Qualified Code(s): D64.9 - Anemia, unspecified (2) Leukocytosis Assessment/Plan: now normal WBC Microbiology 08/21/18 12:50 Urine For Antigen Detection Legionella Antigen - Final 08/21/18 12:50 Urine For Antigen Detection Streptococcus pneumoniae Antigen (M - Final 08/20/18 14:06 Blood - Peripheral Venous Blood Culture - Preliminary NO GROWTH OBTAINED AFTER 24 HOURS, INCUBATION TO CONTINUE FOR 4 DAYS. 08/20/18 14:06 Blood - Peripheral Venous Blood Culture - Preliminary NO GROWTH OBTAINED AFTER 24 HOURS, INCUBATION TO CONTINUE FOR 4 DAYS. Code(s): D72.829 - ELEVATED WHITE BLOOD CELL COUNT, UNSPECIFIED Assessment/Plan DNR morphine IV prn palliative on board
--- NOTE | 2018-08-23 13:39 | PN ---
Progress Note (short form) - Note Progress Note: PULMONARY KNOWN BY ME FROM [facility] LONG DISCUSSION WITH FAMILY REGARDING END OF LIFE DECISIONS THE KNOWN WISHES OF THE PATIENT WAS FOR NO LIFE SUPPORT MEASURES. SON AMBER WAS IN ATTENDANCE ALONG WITH THE PATIENT'S DAUGHTER THEY HAVE REQUESTED THAT [facility] COMFORT CARE MEASURES ONLY AND TO WITHDRAW ALL POTENTIAL MEDICATIONS AND TREATMENT WHICH MAY PROLONG THE PATIENT'S SUFFERING THEY HAVE ALSO REQUESTED THAT [facility] A MORPHINE DRIP TO PREVENT AIR HUNGER ON THE PART OF THE PATIENT. Ruperto THOMAS MD
[2018-08-23] MEDS: MORPHINE SULFATE/0.9% NACL/PF 100 MG/100 ML BAG IVPB SCH (14:53)
--- NOTE | 2018-08-23 15:13 | PN ---
Progress Note (short form) - Note Progress Note: DNR, comfort care morphine iv drip Problem List - Problems (1) Anemia Code(s): D64.9 - ANEMIA, UNSPECIFIED Qualifiers: Anemia type: unspecified type Qualified Code(s): D64.9 - Anemia, unspecified (2) Leukocytosis Code(s): D72.829 - ELEVATED WHITE BLOOD CELL COUNT, UNSPECIFIED
[2018-08-24] MEDS: MORPHINE SULFATE/0.9% NACL/PF 100 MG/100 ML BAG IVPB SCH (07:06)
[2018-08-24] MEDS: clonazePAM 0.5 MG TABLET GT PRN (07:10)
--- NOTE | 2018-08-24 09:10 | PN ---
Progress Note, Physician Chief Complaint: Anemia Chronic respiratory failure History of Present Illness: Called by RN to pronounce patient Patient on a mechanical vent No heart sounds on auscultation Patient pronounce at 09:46 AM Son Garcia Anna and daughter Dea Phan notified at 09:[address] Sridevi Hong notified at 09:50 - Current Medication List Current Medications: Active Medications Acetaminophen (Tylenol -) 650 mg PO Q8H PRN PRN Reason: FEVER Last Admin: 08/21/18 21:45 Dose: 650 mg Clonazepam (Klonopin -) 0.5 mg GT Q8H PRN PRN Reason: ANXIETY Stop: 08/27/18 17:33 Last Admin: 08/24/18 07:10 Dose: 0.5 mg Morphine Sulfate (Morphine 100mg/100ml-0.9% Nacl) 100 mg in 100 mls @ 1 mls/hr IVPB TITR [facility]; Protocol Last Admin: 08/24/18 07:06 Dose: 1.5 mg/hr, 1.5 mls/hr - Objective Vital Signs: Vital Signs Temperature 100.9 F H 08/24/18 06:36 Pulse Rate 115 H 08/24/18 06:36 Respiratory Rate 34 H 08/24/18 06:36 Blood Pressure 104/52 L 08/24/18 06:36 O2 Sat by Pulse Oximetry (%) 61 L 08/23/18 21:00 Labs: CBC, BMP 08/22/18 07:20 08/22/18 07:20 INR, PTT INR 1.36 (0.83-1.09) H 08/21/18 06:49 Problem List - Problems (1) Palliative care status Assessment/Plan: -Seen by Palliative care team -Morphine IV Code(s): Z51.5 - ENCOUNTER FOR PALLIATIVE CARE (2) Chronic respiratory failure Code(s): J96.10 - CHRONIC RESPIRATORY FAILURE, UNSP W HYPOXIA OR HYPERCAPNIA (3) Patient pronounced Code(s): [id number] -
[2018-08-24 10:46] VITALS: BP 100/50; TEMP 100
[2018-08-24 10:47] VITALS: PULSE 0
== END 2018-08-24 12:59 | disposition expired | DRG 871 ==
LOC: JER 13:16 → JERBED 16:07 → J5S 22:48
PROVIDERS: ADMIT Family Medicine; ATTEND Family Medicine
PROC: 5A1945Z Respiratory Ventilation, 24-96 Consecutive Hours (ICD-10-PCS; principal; 2018-08-20)
PROC: 3E0G76Z Introduction of Nutritional Substance into Upper GI, Via Natural or Artificial Opening (ICD-10-PCS; 2018-08-20)
DX: A41.9 Sepsis, unspecified organism (principal); J18.9 Pneumonia, unspecified organism; R64 Cachexia; J96.10 Chronic respiratory failure, unspecified whether with hypoxia or hypercapnia; C85.90 Non-Hodgkin lymphoma, unspecified, unspecified site; E78.5 Hyperlipidemia, unspecified; I25.2 Old myocardial infarction; F41.9 Anxiety disorder, unspecified; K21.9 Gastro-esophageal reflux disease without esophagitis; J44.9 Chronic obstructive pulmonary disease, unspecified; I10 Essential (primary) hypertension; I48.91 Unspecified atrial fibrillation; Z93.1 Gastrostomy status; L89.151 Pressure ulcer of sacral region, stage 1; Z95.1 Presence of aortocoronary bypass graft
CPT/HCPCS: 36415; 36430; 36511; 71045-TC-FY; 80053; 81003; 82150; 82272; 82550; 82607; 82728; 82746; 82962; 83010; 83540; 83550; 83605; 83615; 83690; 83735; 84100; 84436; 84443; 84484; 85025; 85044; 85610; 85651; 85730; 86850; 86900; 86901; 86922; 87040; 87070; 87086; 87205; 87324; 87449; 87899; 93005; 93010; 94002; 94640; 99285-25; J0131; J7030; P9038; P9058